=== PATIENT | female | born 1980 ===

== ENCOUNTER → 2016-05-04 | Outpatient (REF) | LOC: M LAB LCGH 08:53 | PROVIDERS: ATTEND Obstetrics & Gynecology Obstetrics | DX: Z34.80 Encounter for supervision of other normal pregnancy, unspecified trimester (principal) ==

== ENCOUNTER → 2018-11-07 | Outpatient (REF) | LOC: M LAB LCGH 14:55 | PROVIDERS: ATTEND Obstetrics & Gynecology | DX: Z3A.39 39 weeks gestation of pregnancy (principal); Z34.83 Encounter for supervision of other normal pregnancy, third trimester ==